=== PATIENT | male | born 1960 | race Caucasian/White ===

== ENCOUNTER 2018-12-08 06:56 | Day surgery (SDC) | payer BC ==
[~2018-12-08] VITALS: Ht 182.9 cm; Wt 93.0 kg
[~2018-12-08 06:56] MED LIST: CENTRUM SILVER1 CTB PO; MASON NATURAL1200 MG PO; VITAMIN B12 681 TAB PO; ZOCOR 20MG20 MG PO
[2018-12-08 07:46] VITALS: BP 144/111; PULSE 70; TEMP 98.1
[2018-12-08 08:55] VITALS: BP 148/91; PULSE 84; TEMP 98.2
--- NOTE | 2018-12-08 08:55 | NUR ---
Patient brought back to [facility]. Alert and oriented. Vital signs stable. Requsting crackers, coffee, and juice. Nyasia at bedside. Call hall within reach, will continue to monitor.
[2018-12-08 09:10] VITALS: BP 159/94; PULSE 82
--- NOTE | 2018-12-08 09:10 | NUR ---
Patient states he is feeling well. Vital signs stable. Tolerating food and drink without difficulty. Call hall within reach will continue to monitor.
[2018-12-08 09:25] VITALS: BP 159/87; PULSE 71
--- NOTE | 2018-12-08 09:25 | NUR ---
Vital signs stable. Patient states he is ready to go home at this point. States he will follow up with primary in regards to blood pressure, and irregular heart. Will continue to monitor.
--- NOTE | 2018-12-08 09:31 | NUR ---
Discharge instructions reviewed with patient and . All questions answered. Patient to get dressed at this time.
--- NOTE | 2018-12-08 09:45 | NUR ---
Patient brought down to lobby via wheel chair. To be brought home by Nyasia.
== END 2018-12-08 09:45 | disposition home or self-care (01) ==
LOC: SDCO 06:56
DX: K63.5 Polyp of colon (principal); K63.89 Other specified diseases of intestine; K64.0 First degree hemorrhoids; Z85.038 Personal history of other malignant neoplasm of large intestine; G62.9 Polyneuropathy, unspecified; Z98.52 Vasectomy status; Z90.49 Acquired absence of other specified parts of digestive tract; D64.9 Anemia, unspecified; Z88.0 Allergy status to penicillin
CPT/HCPCS: J2250; J3010; J7030